=== PATIENT | female | born 1985 | race Caucasian/White ===

== ENCOUNTER 2022-06-19 08:32 | Emergency (ER) | payer BC, SELFPAY ==
--- NOTE | 2022-06-19 08:36 | ED.UPPEXIN ---
HPI - Extremity Injury (Upper) General Chief Complaint: Extremity Injury, Upper Stated Complaint: rt shoulder pain Time Seen by Provider: 06/19/22 09:00 Source: patient and RN notes reviewed Mode of arrival: ambulatory Limitations: no limitations History of Present Illness HPI narrative: 36 year old female presents with concern for right shoulder pain that started 3 days ago. She reports pain is exacerbated with certain movements of the shoulder. She denies injury or trauma. She reports she has small children that she carries around but does not know of any specific injury. She also reports a small itchy rash on her right forearm congestion therefore 1 week. She denies fever, aches, chills, sweats, drainage from the rash, redness, swelling of the arm MD complaint: injury to: right and shoulder Related Data Allergies Allergy/AdvReac Type Severity Reaction Status Date / Time gluten Allergy Mild Unknown Verified 06/19/22 08:49 Review of Systems Review of Systems: CONSTITUTIONAL: Denies malaise, chills, sweats, or fever. SKIN:. Reports itchy rash on the right forearm. Denies open skin, laceration, abrasion, redness, warmth, swelling. MUSCULOSKELETAL: Reports right shoulder pain NEUROLOGIC: Denies numbness, weakness All systems reviewed & are unremarkable except as noted in HPI and below PMFSH Comments At time of signature, agree with nursing past medical, surgical, social and family history. There is no relevant family history pertinent to the presenting complaint Exam Narrative: GENERAL: Well-appearing, well-nourished, and in no acute distress. HEAD: Normocephalic, atraumatic. EYES: PERRLA, conjunctivae clear NECK: Supple. CHEST: Speaks in full sentences. No respiratory distress. HEART: Regular rate and rhythm. Normal and equal peripheral pulses. EXTREMITIES: Right upper extremity has normal strength and sensation, normal range of motion. No edema or ecchymosis. Normal sensation with sensitivity to light touch and pain. No point tenderness. No open wounds, no skin tenting, no devitalized tissue or atrophy, no trophic changes, no obvious deformity, alignment normal, nearby joints and structures intact. Distal pulses palpable and equal bilaterally, skin warm, dry, pink. Capillary refill less than 3 seconds. SKIN: Warm, dry. 1 cm patch of erythematous papules noted to the right forearm without surrounding erythema, edema, induration, tenderness NEURO: Alert and oriented x3. PSYCH: Normal mood and affect Course Course Emergency Course: Discussed differential diagnosis that cannot exclude shingles, however patient is and condition does not clearly indicate shingles, I will not treat her for shingles at this time. Advised patient that if her symptoms change or worsen she needs to be re-evaluated and possibly treated for shingles. Patient does not have a primary care provider Patient is aware of diagnosis, understands and agrees to treatment plan. Anticipatory guidance given. Patient agrees to follow-up as directed and is aware of reasons to seek care at the emergency department. Portions of this record may have been created with voice recognition software Level of Care: Express Care Visit Vital Signs Vital signs: Reviewed. MDM - Extremity Injury (Upper) MDM Narrative Medical decision making narrative: Exam findings show no acute concerns or changes; patient is non-toxic appearing and is in no distress. Patient is appropriate for outpatient treatment and follow-up. Critical Care Time Critical Care Time Critical Care Time: No Discharge Plan Discharge Clinical Impression: Acute shoulder pain, Rash Patient Disposition: Home, Self-Care Condition: Stable Instructions: Acute Rash (ED), Shoulder Pain (ED) Additional Instructions: Apply prescribed ointment to your rash until it is resolved. Avoid activities that cause pain until the pain subsides. Ice to the area 20-30 minutes 4-6 times a day Ty
[2022-06-19 08:42] VITALS: BP 128/84; PULSE 82; RESP 16; TEMP 36.1; O2SAT 98
== END 2022-06-19 09:13 | disposition home or self-care (01) ==
PROVIDERS: Emergency Provider Nurse Practitioner
DX: M25.511 Pain in right shoulder (principal); R21 Rash and other nonspecific skin eruption
CPT/HCPCS: 99213; G0463

== ENCOUNTER 2022-06-21 08:42 | Emergency (ER) | payer BC, SELFPAY ==
--- NOTE | 2022-06-21 08:54 | ED.SKABFB ---
HPI - Skin/Abscess/Foreign Bdy General Chief complaint: Extremity Problem,Nontraumatic Stated complaint: R SHOULDER PAIN/RASH Time Seen by Provider: 06/21/22 08:50 Source: patient and RN notes reviewed History of Present Illness HPI narrative: Patient is a 36-year-old female who presents to the Urgent Care with complaints of possible shingles to the right upper extremity. Patient was here on Wednesday with right shoulder pain and possible area of psoriasis. Patient was given prescription cream by the provider with suspect ortiz that if she had increase in lesions or nerve pain, she could have shingles. Patient states that she is now having exacerbated traveling nerve pain down the arm and now has more spots to the right lower arm. Patient denies any known injury to cause the shoulder pain. No other acute complaints. No acute distress noted. Patient aware of the plan of care. Some parts of this dictation were generated by voice recognition software and may contain typographical and/or grammatical inaccuracies. Related Data Allergies Allergy/AdvReac Type Severity Reaction Status Date / Time gluten Allergy Mild Unknown Verified 06/19/22 08:49 Review of Systems Review of Systems: CONSTITUTIONAL: Denies fever, chills, or sweats. EYES: Denies visual changes, redness, or discharge. ENT: Denies rhinorrhea, congestion, sore throat, or otalgia. CARDIOVASCULAR: Denies chest pain, palpitations, or edema. RESPIRATORY: Denies cough or dyspnea. GASTROINTESTINAL: Denies abdominal pain, nausea, vomiting, or diarrhea. GENITOURINARY: Denies dysuria or hematuria. SKIN: Reports possible shingles rash to the right arm MUSCULOSKELETAL: Reports right shoulder pain NEUROLOGIC: Denies headache, numbness, or weakness. All other systems reviewed are negative, except as documented in HPI. PMFSH Comments At the time of my signature, I reviewed and agree with the nursing past medical, surgical, social, and family history. There is no relevant family history pertinent to the patient complaint. Exam Narrative: GENERAL: This is a well-nourished, well-developed patient, in no apparent distress. HEAD: normocephalic, atraumatic. EYES: PERRL. Sclera clear/white. Vision is grossly intact. EARS: External ears normal NOSE: External nose normal with no obvious nasal discharge, nares without redness, no rhinorrhea. THROAT: Mucous membranes moist NECK: Neck supple SKIN: Quarter-sized area of erythema with small vesicular lesions to the right forearm. Warm, intact with no suspicious lesions or rash, good texture and turgor. NEURO: awake, alert, and oriented to person, place and time. There were no obvious focal neurologic abnormalities. EXTREMITIES: No clubbing, cyanosis, or edema. Range of motion right upper extremity within normal limits without any exacerbated pains to the right shoulder. Positive strong right radial pulse with capillary refill less than 2 seconds. Course Course Level of Care: Express Care Visit Vital Signs Vital signs: Vital Signs Temperature 98.1 F 06/21/22 09:02 Pulse Rate 80 06/21/22 09:02 Respiratory Rate 16 06/21/22 09:02 Blood Pressure 131/86 06/21/22 09:02 Pulse Oximetry 100 06/21/22 09:02 Temperature 98.1 F 06/21/22 09:02 Pulse Rate 80 06/21/22 09:02 Respiratory Rate 16 06/21/22 09:02 Blood Pressure 131/86 06/21/22 09:02 Pulse Oximetry 100 06/21/22 09:02 Reviewed MDM - Skin/Abscess/Foreign Bdy MDM Narrative Medical decision making narrative: Discussed with the patient that we will treat for possible shingles due to traveling nerve pain. The rash is not totally consistent with shingles rash however could be presenting with more pain rather than outward rash. Advised patient continue the ibuprofen. Acyclovir is safe in /. If you wish to speak to the pharmacist regarding the medication while , there is that option. However there is no literature to suggest no
[2022-06-21 09:02] VITALS: BP 131/86; PULSE 80; RESP 16; TEMP 36.7; O2SAT 100
== END 2022-06-21 09:21 | disposition home or self-care (01) ==
PROVIDERS: Emergency Provider Nurse Practitioner Family; PCP Family Medicine
DX: B02.9 Zoster without complications (principal); K90.0 Celiac disease
CPT/HCPCS: 99213; G0463

== ENCOUNTER 2022-07-03 08:20 | Outpatient (CLI) | payer BC, SELFPAY ==
[2022-07-03 19:57] LABS: Alanine Aminotransferase 26 U/L (6-35); Albumin Level 4.6 g/dL (3.5-5.1); Alkaline Phosphatase 84 U/L (38-126); Anion Gap 6 mmol/L (8-16); Aspartate Amino Transferase 37 U/L (14-36); Basophils Absolute Auto 0.1 K/mm3 (0.0-0.1); Basophils Percent Auto 0.7 % (0.2-1.2); Bilirubin,Total 0.4 mg/dL (0.2-1.3); Blood Urea Nitrogen 19 mg/dL (7-17); Calcium 8.9 mg/dL (8.4-10.2); Carbon Dioxide 26 mmol/L (22-30); Chloride 104 mmol/L (98-107); Cholesterol 185 mg/dL (0-200); Eosinophils Absolute Auto 0.2 K/mm3 (0-0.3); Eosinophils Percent Auto 2.6 % (0-4.4); Estimated Glomerular Filt Rate > 60; Glucose 81 mg/dL (65-110); HDL Direct 36 mg/dL; Hematocrit 43.8 % (37.0-47.0); Hemoglobin 14.2 g/dL (12.0-15.0); Immature Granulocyte Absolute 0.01 K/mm3 (0.00-0.031); Immature Granulocyte Percent A 0.1 % (0-0.5); Lymphocytes Absolute Auto 1.99 K/mm3 (0.9-3.2); Mean Corpuscular HGB Conc 32.4 g/dl (32-36); Mean Corpuscular Hemoglobin 27.4 pg (26-34); Mean Corpuscular Volume 84.6 fl (80-100); Mean Platelet Volume 9.8 fl (7.4-10.4); Monocytes Absolute Auto 0.7 K/mm3 (0.1-0.6); Monocytes Percent Auto 8.8 % (2.6-8.5); Neutrophils Absolute Auto 4.5 K/mm3 (1.3-6.7); Neutrophils Percent Auto 60.8 % (45.5-73.1); Platelet Count Result 290 k/mm3 (150-375); Red Blood Count 5.18 M/mm3 (4.2-5.4); Red Cell Distribution Width 13.3 % (11.5-14.5); Sodium 136 mmol/L (137-145); Triglycerides 132 mg/dL (<150); White Blood Count 7.4 K/mm3 (4.5-10.0)
[2022-07-03 20:08] LABS: LDL Cholesterol Direct 105 mg/dL
== END 2022-07-03 08:21 | disposition home or self-care (01) ==
LOC: ANHGOSHLAB 08:21
PROVIDERS: PCP Family Medicine; Visit Provider Family Medicine
DX: K90.0 Celiac disease (principal); Z13.220 Encounter for screening for lipoid disorders; F41.9 Anxiety disorder, unspecified
CPT/HCPCS: 36415; 80053; 80061; 84443; 85025

== ENCOUNTER 2022-10-16 12:31 | Outpatient (CLI) | payer BC, SELFPAY ==
--- NOTE | ~2022-10-16 | MMUS_ITS ---
EXAMINATION: MM diagnostic aracelis BI w aubree, US breast LT limited HISTORY: Palpable lump in the upper outer quadrant of the left breast. Patient is breast-feeding. TECHNIQUE: Craniocaudal, mediolateral, and mediolateral oblique 3-D tomosynthesis images of the breas ts were performed and synthetic 2-D images were generated. CAD analysis was submitted and interpreted . High resolution limited left breast ultrasound was performed. COMPARISON: None, baseline BREAST PARENCHYMAL COMPOSITION: The breasts are heterogeneously dense, which may obscure small masses . FINDINGS: MAMMOGRAPHIC FINDINGS: No suspicious mass, calcification, or architectural distortion are identified in either breast to sug gest malignancy. No mammographic correlate is identified for the reported palpable abnormality of con cern of the right breast ULTRASOUND: There is an 8 mm x 4 mm oval, hypoechoic mass with indistinct margins, no posterior features, and no internal vascularity at the 12:00 location 2 cm from the nipple corresponding to the palpable abnorma lity of concern. IMPRESSION: 1. Probably benign sonographically detected left breast mass corresponding to the palpable abnormalit y of concern. 2. Recommend follow-up targeted left breast ultrasound in 4-6 weeks. BI-RADS category 3, probably benign findings. Reviewed, dictated and finalized at location A. IMPRESSION: 1. Probably benign sonographically detected left breast mass corresponding to t he palpable abnormality of concern. 2. Recommend follow-up targeted left breast ultrasound in 4-6 weeks. BI-RADS category 3, probably benign findings.
== END 2022-10-16 12:32 | disposition home or self-care (01) ==
LOC: ANHIMG 12:32
PROVIDERS: PCP Family Medicine; Visit Provider Nurse Practitioner Family
DX: N63.20 Unspecified lump in the left breast, unspecified quadrant (principal); R92.8 Other abnormal and inconclusive findings on diagnostic imaging of breast
CPT/HCPCS: 76642; 77062; 77066; G0279

== ENCOUNTER 2023-09-17 13:58 | Outpatient (CLI) | payer BC, SELFPAY ==
--- NOTE | ~2023-09-17 | US_ITS ---
EXAMINATION: US OB <= 14 weeks fetus DATE: 09/17/2023 14:14 INDICATION: Amenorrhea TECHNIQUE: Real-time pelvic ultrasound utilizing both a transvaginal and transabdominal probe was pe rformed. The interpreting radiologist was not present for the study. COMPARISON: None. FINDINGS: The uterus measures 11.2 x 6.9 x 6.7 cm. There is an intrauterine gestational sac. A yolk sac and fe tank pole are identified. The crown rump length measures 3.7 cm, which correlates with an estimated ge stational age of 10 weeks and 4 days. heart motion is identified measuring 174 beats per minute (bpm) by M-mode Doppler. The right ovary measures 3.1 x 2.9 x 3.0 cm. And 2.2 similar anechoic likely corpus luteum cyst in th e right ovary. The left ovary is not visualized. There is no free fluid in the pelvis. IMPRESSION: 1. Single living fetus with heart rate of 174 bpm. 2. Gestational age by ultrasound of 10 weeks 4 day(s) +/- 7 day(s) with ultrasound estimated date of delivery ([facility]) of 04/10/2024. Reviewed, dictated and finalized at location B. IMPRESSION: 1. Single living fetus with heart rate of 174 bpm. 2. Gestational age by ultrasound of 10 weeks 4 day(s) +/- 7 day(s) with ultras ound estimated date of delivery ([facility]) of 04/10/2024.
== END 2023-09-17 13:59 ==
LOC: GOSHIMG 13:59
PROVIDERS: PCP Family Medicine; Visit Provider Student in an Organized Health Care Education/Training Program
DX: Z34.91 Encounter for supervision of normal pregnancy, unspecified, first trimester (principal); Z3A.10 10 weeks gestation of pregnancy
CPT/HCPCS: 76801

== ENCOUNTER 2023-11-22 04:44 | Inpatient (IN) | payer BC, SELFPAY ==
[2023-11-22] VITALS (82 sets, daily range): BP systolic 45–140; BP diastolic 21–95; PULSE 27–120; TEMP 36.3–36.7; O2SAT 67–100; BMI 32.0
--- NOTE | 2023-11-22 06:02 | PM.IMHP ---
H&P: HPI History of Present Illness Date/Time: 11/22/23 06:02 Chief Complaint: Second trimester demise Narrative: 38-year-old 7 para 6 for induction of labor at 20 weeks gestation secondary to she had ultrasounds per fetus the groomed. She had had previous vaginal delivery x2 followed by C-sections and to ultrasound reveals risks and benefits reviewed [facility] Past Medical History Medical History ADD (attention deficit disorder) Anxiety BMI greater than 30 Celiac disease Suppression of menses (vaginal after ) 2017, 2019, 2021 Zoster Surgical History Surgical History History of delivery 2016 Hx of cholecystectomy Hx of tonsillectomy Family History Family History Grandparent Acute myocardial infarction Heart disease Social History Social History Smoking status: Never smoker Alcohol intake: never Substance use: never Lack of Transportation: No Lack of Food: Never True Current Housing: I Have Housing Concerned About Future Housing: No Difficulty Paying Gas/Electric Bills: No Difficulty Paying for Meds: No Currently Unemployed: No Education: High School Diploma/GED Difficulty w/ Childcare or Family Care: No Living arrangements: with family Occupation/Education: unemployed Gender identity (if verbalized by the patient): Female Sexual Orientation (if Verbalized by the Patient): Straight or Heterosexual Meds Home Medications and Allergies Home Medications Medication Instructions Recorded Confirmed Type vits no.126-ferrous fum tablet PO 09/15/23 09/15/23 History 28 mg iron-folic acid 800 mcg tablet (Classic ) Allergies Allergy/AdvReac Type Severity Reaction Status Date / Time gluten Allergy Mild Unknown Verified 09/15/23 10:05 Exam Const: General: cooperative, healthy appearing and comfortable Nutritional Appearance: average body habitus Orientation/consciousness: oriented to person, oriented to place and oriented to time Resp: Effort & Inspection: normal respiratory effort Cardio: Rate: regular rate Rhythm: regular rhythm Heart sounds: S1 normal heart sound present and S2 normal heart sound present GI: Inspection: normal to inspection : External Female Exam: normal external appearance Speculum Exam - Vagina: normal appearance of the vagina Speculum Exam - Cervix: normal appearance of the cervix Bimanual exam- vagina & uterus: enlarged Bimanual Exam- Adnexa, other: normal adnexae Assessment and Plan Assessment and plan (1) demise: Status: Acute Assessment and Plan: medical induction of labor.
[2023-11-22] MEDS: miSOPROStol 100 MCG TABLET VAGINAL ×6 (06:04→22:13)
[2023-11-22 06:27] LABS: Basophils Percent Auto 0.4 % (0.2-1.2); Eosinophils Absolute Auto 0.1 K/mm3 (0-0.3); Eosinophils Percent Auto 2.1 % (0-4.4); Hematocrit 40.3 % (37.0-47.0); Hemoglobin 13.6 g/dL (12.0-15.0); Immature Granulocyte Absolute 0.03 K/mm3 (0.00-0.031); Immature Granulocyte Percent A 0.4 % (0-0.5); Lymphocytes Absolute Auto 1.69 K/mm3 (0.9-3.2); Lymphocytes Percent Auto 24.8 % (18.3-44.2); Mean Corpuscular HGB Conc 33.7 g/dl (32-36); Mean Corpuscular Hemoglobin 29.1 pg (26-34); Mean Corpuscular Volume 86.1 fl (80-100); Mean Platelet Volume 9.7 fl (7.4-10.4); Monocytes Absolute Auto 0.4 K/mm3 (0.1-0.6); Monocytes Percent Auto 6.3 % (2.6-8.5); Neutrophils Absolute Auto 4.5 K/mm3 (1.3-6.7); Platelet Count Result 283 k/mm3 (150-375); Red Blood Count 4.68 M/mm3 (4.2-5.4); Red Cell Distribution Width 13.8 % (11.5-14.5); White Blood Count 6.8 K/mm3 (4.5-10.0)
[2023-11-22 07:09] LABS: Free T4 Free Thyroxine 0.95 ng/mL (0.78-2.19); Hemoglobin A1C 4.8 % (<5.7)
--- NOTE | 2023-11-22 07:12 | WPDANESEPP ---
Anes - Eval Pre Procedure Procedure: labor epidural Date/Time: 11/22/23 07:12 Surgeon: holland Preop Diagnosis: pain during labor Pre Op Diagnosis: IUFD Patient Data Age: 38 Gender: F Height: Weight: Last Vital Signs Temp 36.4 C 11/22/23 06:45 Pulse 78 11/22/23 07:00 BP 98/71 L 11/22/23 07:00 Allergies Allergy/AdvReac Type Severity Reaction Status Date / Time gluten Allergy Mild Unknown Verified 09/15/23 10:05 Home Medications Medication Instructions Recorded Confirmed Type vits no.126-ferrous fum tablet PO 09/15/23 09/15/23 History 28 mg iron-folic acid 800 mcg tablet (Classic ) Laboratory Tests 11/22/23 11/22/23 11/22/23 06:10 06:11 06:11 WBC 6.8 K/mm3 (4.5-10.0) RBC 4.68 M/mm3 (4.2-5.4) Hgb 13.6 g/dL (12.0-15.0) Hct 40.3 % (37.0-47.0) MCV 86.1 fl (80-100) MCH 29.1 pg (26-34) MCHC 33.7 g/dl (32-36) RDW 13.8 % (11.5-14.5) Plt Count 283 k/mm3 (150-375) MPV 9.7 fl (7.4-10.4) Immature Gran % (Auto) 0.4 % (0-0.5) Neut % (Auto) 66.0 % (45.5-73.1) Lymph % (Auto) 24.8 % (18.3-44.2) [place] % (Auto) 6.3 % (2.6-8.5) Eos % (Auto) 2.1 % (0-4.4) Baso % (Auto) 0.4 % (0.2-1.2) Lymph # (Auto) 1.69 K/mm3 (0.9-3.2) [place] # (Auto) 0.4 K/mm3 (0.1-0.6) Eos # (Auto) 0.1 K/mm3 (0-0.3) Baso # (Auto) 0.0 K/mm3 (0.0-0.1) Abs Immat Gran (auto) 0.03 K/mm3 (0.00-0.031) Absolute Neuts (auto) 4.5 K/mm3 (1.3-6.7) Absolute Nucleated RBC 0.000 K/mm3 (0.0-0.012) Nucleated RBC % 0.0 % (0.0-0.2) LA PTT Screen Pending dRVVT Screen Pending Lupus Anticoag Interp Pending Hemoglobin A1c 4.8 % (<5.7) TSH 1.270 uIU/mL (0.465-4.680) Free T4 0.95 ng/mL (0.78-2.19) Beta-2-GPI IgG Ab Pending Pending Beta-2-GPI IgA Ab Pending Beta-2-GPI IgM Ab Phosphatidylserine Ab Phosphatidylserine IgG Phosphatidylserine IgA Phosphatidylserine IgM Anti-Cardiolipin IgG Ab Pending Anti-Cardiolipin IgA Ab Pending Anti-Cardiolipin IgM Ab Pending RPR Pending CMV IgG Ab CMV IgM Ab HSV I Specific Ab Pending HSV II Specific Ab Pending Parvovirus B19 IgG Intp Pending Parvovirus B19 IgM Intp Pending Rubella IgG Antibody Pending Toxoplasma IgG Ab Pending Toxoplasma IgM Ab Add Miscellaneous Test Blood Type Pending Antibody Screen Pending 11/22/23 11/22/23 06:11 06:11 WBC RBC Hgb Hct MCV MCH MCHC RDW Plt Count MPV Immature Gran % (Auto) Neut % (Auto) Lymph % (Auto) [place] % (Auto) Eos % (Auto) Baso % (Auto) Lymph # (Auto) [place] # (Auto) Eos # (Auto) Baso # (Auto) Abs Immat Gran (auto) Absolute Neuts (auto) Absolute Nucleated RBC Nucleated RBC % LA PTT Screen dRVVT Screen Lupus Anticoag Interp Hemoglobin A1c TSH Free T4 Beta-2-GPI IgG Ab Beta-2-GPI IgA Ab Pending Beta-2-GPI IgM Ab Pending Pending Phosphatidylserine Ab Pending Phosphatidylserine IgG Pending Phosphatidylserine IgA Pending Phosphatidylserine IgM Pending Anti-Cardiolipin IgG Ab Pending Anti-Cardiolipin IgA Ab Pending Anti-Cardiolipin IgM Ab Pending RPR CM
--- NOTE | 2023-11-22 11:33 | PM.OBPNLAB ---
Pain Control Date/time seen: 11/22/23 11:33 Pain control: tolerating well Comments: increased cramping with second dose
[2023-11-22 12:55] LABS: Amphetamine Screen Urine Negative (Negative); Barbiturate Screen Urine Negative (Negative); Benzodiazepines Screen Urine Negative (Negative); Cannabinoid Screen Urine Negative (Negative); Cocaine Screen Urine Negative (Negative); Methadone Screen Urine Negative (Negative); Opiate Screen Urine Negative (Negative); Phencyclidine Screen Urine Negative (Negative)
--- NOTE | 2023-11-22 13:08 | PM.OBPNLAB ---
Pain Control Date/time seen: 11/22/23 13:08 Pain control: tolerating well Comments: crampy
[2023-11-22 14:42] LABS: Rapid Plasma Reagin Non-Reactive (NonReactive)
[2023-11-22 16:34] LABS: Rubella IgG Antibody 46.6 IU/ML
--- NOTE | 2023-11-22 18:02 | PM.OBPNLAB ---
Pain Control Date/time seen: 11/22/23 18:02 Pain control: tolerating well Pelvic Exam Dilation (cm): 0
--- NOTE | 2023-11-22 18:12 | PC.NURSE ---
Per Dr kayley Hong give next dose of Cytotec in 2 hours 1949.
[2023-11-22] MEDS: LACTATED RINGERS 1,000 ML 125 ML IV CONT (20:49)
--- NOTE | 2023-11-22 23:31 | P.PCNOB_ITS ---
OB - Vaginal Delivery Note Procedure Delivery date: 11/22/23 Events: Other ( demise\) Induction method: Per Misoprostol Protocol Delivery monitor: None Route of delivery: Episiotomy description: None Laceration Description: None Quantitative Blood Loss (ml): 100 Anesthesia type: Epidural Disposition: Floor Complications: Other complications ( placenta still undelivered) Narrative: patient was induction of labor by dates she was 20 weeks gestation with what appeared to be about a 17 week demise. She is given several doses of Cytotec and progressed to the slow phase of labor. 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 Presently the placenta has not delivered and she is stable but not bleeding heavily we will continue to watch consider suction D and C if the placenta does not deliver Baby Date of : 11/22/23 Time of : 23:23 Weeks of gestation at delivery: 20 Infant gender: Male presentation: vertex Placenta delivery description: Other ( pending) score one minute: 0 score five minutes: 0
[2023-11-23] VITALS (64 sets, daily range): BP systolic 85–116; BP diastolic 47–77; PULSE 64–90; TEMP 36.4–36.6; O2SAT 97–100
[2023-11-23] MEDS: OXYTOCIN 30 UNITS/NS 500 ML 30 UNITS/500 ML BAG 125 UNITS IV CONT (00:01)
[2023-11-23] MEDS: LORATADINE 10 MG TABLET PO (02:42)
--- NOTE | 2023-11-23 06:09 | PM.DS ---
DS: Admitting Diagnosis Discharge Date 2019 for Admitting Diagnosis 2nd trimester demise DS: Discharge Diagnosis Discharge Diagnosis (1) demise: Status: Acute DS: Summary Hospital Course Reason for hospitalization: patient was for induction labor approximately 17 weeks with demise. She underwent spontaneous vaginal delivery after multiple doses of Cytotec on 11/22 2023 Hospital Course: patient passed the placenta about 2 in the morning on 11/22. Her bleeding was small. Routine discharge instructions were given as she was not eating regular diet ambulating and feeling okay emotionally she appeared appeared stable Time Spent with Patient Time attestation: Total time spent providing and/or coordinating discharge services: Exam Const: General: cooperative, healthy appearing, comfortable and average body habitus Nutritional Appearance: average body habitus, well nourished and cachectic Orientation/consciousness: oriented to person, oriented to place and oriented to time Resp: Effort & Inspection: normal respiratory effort Cardio: Rate: regular rate Rhythm: regular rhythm Heart sounds: S1 normal heart sound present and S2 normal heart sound present GI: Inspection: normal to inspection DS: Data Data Completed and Pending Labs on day of discharge: Labs from last 24 hours 11/22/23 11/22/23 11/22/23 12:19 06:11 06:11 WBC RBC Hgb Hct MCV MCH MCHC RDW Plt Count MPV Immature Gran % (Auto) Neut % (Auto) Lymph % (Auto) [place] % (Auto) Eos % (Auto) Baso % (Auto) Lymph # (Auto) [place] # (Auto) Eos # (Auto) Baso # (Auto) Abs Immat Gran (auto) Absolute Neuts (auto) Absolute Nucleated RBC Nucleated RBC % LA PTT Screen dRVVT Screen Lupus Anticoag Interp Hemoglobin A1c TSH Free T4 Urine Opiates Screen Negative Urine Methadone Screen Negative Ur Barbiturates Screen Negative Ur Phencyclidine Scrn Negative Ur Amphetamine Screen Negative U Benzodiazepines Scrn Negative Urine Cocaine Screen Negative U Cannabinoids Screen Negative Beta-2-GPI IgG Ab Beta-2-GPI IgA Ab Pending Beta-2-GPI IgM Ab Pending Pending Phosphatidylserine Ab Pending Phosphatidylserine IgG Pending Phosphatidylserine IgA Pending Phosphatidylserine IgM Pending Anti-Cardiolipin IgG Ab Pending Anti-Cardiolipin IgA Ab Pending Anti-Cardiolipin IgM Ab Pending RPR CMV IgG Ab Pending CMV IgM Ab Pending HSV I Specific Ab HSV II Specific Ab Parvovirus B19 IgG Intp Parvovirus B19 IgM Intp Rubella IgG Antibody Toxoplasma IgG Ab Toxoplasma IgM Ab Pending Add Miscellaneous Test Pending Blood Type Antibody Screen 11/22/23 11/22/23 11/22/23 06:11 06:11 06:10 WBC 6.8 RBC 4.68 Hgb 13.6 Hct 40.3 MCV 86.1 MCH 29.1 MCHC 33.7 RDW 13.8 Plt Count 283 MPV 9.7 Immature Gran % (Auto) 0.4 Neut % (Auto) 66.0 Lymph % (Auto) 24.8 [place] % (Auto) 6.3 Eos % (Auto) 2.1 Baso % (Auto) 0.4 Lymph # (Auto) 1.69 [place] # (Auto) 0.4 Eos # (Auto) 0.1 Baso # (Auto) 0.0 Abs Immat Gran (auto) 0.03 Absolute Neuts (auto) 4.5 Absolute Nucleated RBC 0.000 Nucleated RBC % 0.0 LA PTT Screen Pending dRVVT Screen Pending Lupus Anticoag Interp Pending Hemoglobin A1c 4.8 TSH 1.270 Free T4 0.95 Urine Opiates Screen Urine Methadone Screen Ur Barbiturates Screen Ur Phencyclidine Scrn Ur Amphetamine Screen U Benzodiazepines Scrn Urine Cocaine Screen U Cannabinoids Screen Beta-2-GPI IgG Ab Pending Pending Beta-2-GPI IgA Ab Pending Beta-2-GPI IgM Ab Phosphatidylserine Ab Phosphatidylserine IgG Phosphatidylserine IgA Phosphatidylserine IgM Anti-Cardiolipin IgG Ab Pending Anti-Cardiolipin IgA Ab Pending Anti-Cardiolipin IgM Ab
--- NOTE | 2023-11-23 06:30 | PC.NURSE ---
Epidural catheter removed, tip intact, bandaid applied. Pt up to the bathroom using CHEY steady, right leg is still heavy from the epidural. Pt able to void and dulce care performed. Linens changed.
[2023-11-23] MEDS: IBUPROFEN 600 MG TABLET PO ×2 (06:47→13:17)
--- NOTE | 2023-11-23 09:10 | PC.NURSE ---
CHEY black used to go to the bathroom. Pt is able to move her leg more but still slightly heavy. Voided without difficulty.
[2023-11-23 12:13] LABS: Toxoplasma IgM Antibody <8.00 AU/mL
[2023-11-23 12:13] LABS: Toxoplasma IgG Antibody <7.20 IU/mL
[2023-11-23 12:48] LABS: CMV IgM Antibody <30.00 AU/mL
[2023-11-23 19:43] LABS: Lupus dRVVT Screen 40 sec (< OR = 45); PTT-LA Screen 32 sec (< OR = 40)
[2023-11-24 03:23] LABS: Anti Cardio Antibody IgM <2.0 MPL-U/mL; Anti Cardiolipin Antibody IgA <2.0 APL-U/mL; Anti Cardiolipin Antibody IgG <2.0 GPL-U/mL
[2023-11-27 03:08] LABS: Anti Cardio Antibody IgM <2.0 MPL-U/mL; Anti Cardiolipin Antibody IgA <2.0 APL-U/mL; Anti Cardiolipin Antibody IgG <2.0 GPL-U/mL
[2023-11-27 19:18] LABS: PS/PT AB IgG <9 U (< OR = 30); PS/PT AB IgM 10 U (< OR = 30)
== END 2023-11-23 13:25 | disposition home or self-care (01) | DRG 807 ==
PROVIDERS: Admitting Provider Obstetrics & Gynecology; PCP Family Medicine; Visit Provider Obstetrics & Gynecology
DX: O36.4XX0 Maternal care for intrauterine death, not applicable or unspecified (principal); Z37.1 Single stillbirth; Z3A.20 20 weeks gestation of pregnancy; Z90.49 Acquired absence of other specified parts of digestive tract
CPT/HCPCS: 36415; 80307; 83036; 84439; 84443; 85025; 85613; 85730; 86146; 86147; 86592; 86644; 86645; 86695; 86696; 86747; 86762; 86777; 86850; 86900; 86901; A9270; J2590; J2795; J7120